=== PATIENT | female | born 1940 | race Caucasian/White ===

== ENCOUNTER 2025-03-15 12:45 | Inpatient (IN) | payer MEDICARE ==
[~2025-03-15] VITALS: Ht 157.5 cm; Wt 45.4 kg
[2025-03-15 12:49] VITALS: O2SAT 99
[2025-03-15 15:20] LABS: CREATININE 1.1 mg/dL (0.6-1.0); UREA NITROGEN BLOOD 19 mg/dL (9-23)
[2025-03-15 15:21] LABS: TROPONIN I HIGH SENSITIVITY 13 ng/L (3.0-34)
[2025-03-15 15:22] LABS: ASPARTATE AMINOTRANSFERASE 20 IU/L (<34); BILIRUBIN DIRECT 0.3 mg/dL (<=3.0); BILIRUBIN TOTAL 0.9 mg/dL (0.1-1.0); PROTEIN TOTAL 6.6 g/dL (6.0-8.3)
[2025-03-15 15:25] LABS: BASOPHILS % 0.2 % (0.0-2.0); EOSINOPHILS % 0.3 % (0.0-5.0); HEMATOCRIT. 30.9 % (36.0-48.0); HEMOGLOBIN. 10.6 g/dL (12.0-16.0); LYMPHOCYTES % 7.4 % (20.0-50.0); MEAN PLATELET VOLUME 8.1 fl (7.4-10.4); MONOCYTES % 4.6 % (2.0-8.0); NEUTROPHILS % 87.5 % (40.0-76.0); PLATELET 175 x1000/uL (130-400); RED BLOOD CELL COUNT 2.70 mill/uL (4.2-5.4); RED CELL DISTRIBUTION WIDTH 14.0 % (11.6-14.6)
[2025-03-15 15:31] LABS: ADD RBC MORPHOLOGY YES
[2025-03-15 15:36] LABS: INR 1.0
[2025-03-15] MEDS ORDERED: IPRATROPIUM/ALBUTEROL 0.5-3(2.5)MG/3ML NEB NEB PRN (15:45)
[2025-03-15] MEDS ORDERED: MAGNESIUM/ALUMINUM HYDROXIDE/SIMETHICONE 30ML UDC PO PRN (15:45)
[2025-03-15] MEDS ORDERED: ACETAMINOPHEN 650MG SUPP PR PRN (15:45)
[2025-03-15] MEDS ORDERED: NA PHOS,M-B/NA PHOS,DI-BA ENEMA 118ML PR PRN (15:45)
[2025-03-15] MEDS ORDERED: ONDANSETRON HCL 4MG/2ML INJ IV PRN (15:45)
[2025-03-15] MEDS ORDERED: DIPHENHYDRAMINE 50MG/ML VIAL IV PRN (15:45)
[2025-03-15] MEDS ORDERED: ACETAMINOPHEN 325MG TABLET PO PRN (15:45)
[2025-03-15] MEDS ORDERED: GUAIFENESIN 200MG/10ML SUGAR FREE UDC PO PRN (15:45)
[2025-03-15] MEDS ORDERED: NALOXONE HCL 0.4MG/ML VIAL IV PRN (16:30)
[2025-03-15] MEDS: CLONIDINE 0.1MG TABLET PO PRN (17:47)
[2025-03-15 17:55] VITALS: BP 188/74; PULSE 73; RESP 24; TEMP 36.974
[2025-03-15 18:41] LABS: CLARITY URINE CLEAR (CLEAR); COLOR URINE YELLOW (YELLOW); GLUCOSE URINE NEGATIVE (NEGATIVE); KETONES URINE NEGATIVE (NEGATIVE); LEUKOCYTE ESTERASE URINE 3+ (NEGATIVE); NITRITE URINE NEGATIVE (NEGATIVE); OCCULT BLOOD URINE 1+ (NEGATIVE); PH URINE 7.0 (4.5-8.0); PROTEIN URINE TRACE (NEGATIVE); SPECIFIC GRAVITY URINE 1.012 (1.005-1.030); UROBILINOGEN URINE 1.0 E.U./dL (0.2-1.0)
[2025-03-15 18:47] VITALS: BP 159/76; PULSE 75
[2025-03-15 19:02] LABS: BACTERIA URINE TRACE
[2025-03-15 19:03] LABS: SQUAMOUS EPITHELIAL CELL URINE FEW /lpf (RARE/1+)
[2025-03-15 20:00] VITALS: BP 163/65; PULSE 70; RESP 16; TEMP 36.7
[2025-03-15 21:03] LABS: PLATELET ESTIMATE NORMAL
[2025-03-16] VITALS: BP 158/62; PULSE 64; RESP 18; TEMP 36.4; O2SAT 100
[2025-03-16] MEDS: AMLODIPINE 5MG TABLET PO SCH (00:07)
[2025-03-16 02:46] LABS: CREATINE KINASE MB FRACTION < 0.5 ng/mL (0.5-3.6); TROPONIN I HIGH SENSITIVITY 12 ng/L (3.0-34)
[2025-03-16 04:00] VITALS: BP 173/59; PULSE 62; RESP 16; TEMP 36.6; O2SAT 100
[2025-03-16 07:41] LABS: TROPONIN I HIGH SENSITIVITY 8 ng/L (3.0-34)
[2025-03-16 07:42] LABS: CREATINE KINASE MB FRACTION < 0.5 ng/mL (0.5-3.6)
[2025-03-16 08:00] VITALS: BP 170/52; PULSE 62; RESP 24; TEMP 36.1; O2SAT 100
[2025-03-16 12:00] VITALS: PULSE 68; RESP 24; TEMP 36.8; O2SAT 100
[2025-03-16] MEDS: POLYETHYLENE GLYCOL 3350 (17GM) 1 DOSE PACK PO SCH (12:15)
[2025-03-16 16:00] VITALS: PULSE 81; RESP 21; TEMP 36.4; O2SAT 98
[2025-03-16] MEDS: LORAZEPAM 0.5MG TABLET PO PRN (17:44)
[2025-03-16 20:00] VITALS: BP 141/67; PULSE 81; RESP 18; TEMP 36.6; O2SAT 100
[2025-03-17] VITALS: BP 145/56; PULSE 71; RESP 20; TEMP 36.6; O2SAT 99
[2025-03-17 04:00] VITALS: BP 138/54; PULSE 76; RESP 18; TEMP 36.6; O2SAT 99
[2025-03-17 08:00] VITALS: BP 135/55; PULSE 69; RESP 21; TEMP 36.8; O2SAT 99
[2025-03-17 12:00] VITALS: BP 147/53; PULSE 73; RESP 20; TEMP 37.1; O2SAT 99
[2025-03-17 16:00] VITALS: BP 131/58; PULSE 71; RESP 20; TEMP 36.9; O2SAT 98
[2025-03-17 20:00] VITALS: BP 129/58; PULSE 76; RESP 19; TEMP 36.6; O2SAT 100
[2025-03-18] VITALS (8 sets, daily range): BP systolic 117–202; BP diastolic 51–76; PULSE 65–85; RESP 16–19; TEMP 36.2–36.9; O2SAT 98–100
[2025-03-18 06:32] LABS: BASOPHILS % 0.1 % (0.0-2.0); EOSINOPHILS % 2.4 % (0.0-5.0); HEMATOCRIT. 29.9 % (36.0-48.0); HEMOGLOBIN. 10.3 g/dL (12.0-16.0); LYMPHOCYTES % 25.1 % (20.0-50.0); MEAN PLATELET VOLUME 8.7 fl (7.4-10.4); MONOCYTES % 6.1 % (2.0-8.0); NEUTROPHILS % 66.3 % (40.0-76.0); PLATELET 167 x1000/uL (130-400); RED BLOOD CELL COUNT 2.61 mill/uL (4.2-5.4); RED CELL DISTRIBUTION WIDTH 13.6 % (11.6-14.6)
[2025-03-18 07:01] LABS: CREATININE 0.9 mg/dL (0.6-1.0); UREA NITROGEN BLOOD 18.0 mg/dL (9-23)
[2025-03-18] MEDS ORDERED: AMLO5TAB88 PO (09:05)
[2025-03-18] MEDS: HYDROCODONE/ACETAMINOPHEN 5/325MG TABLET PO PRN (11:39)
[2025-03-18] MEDS ORDERED: HYDRALAZINE 10 MG in SODIUM CHLORIDE 0.9% 49.5 ML IV PRN (18:00)
[2025-03-18] MEDS: HYDRALAZINE HCL 25MG TABLET PO SCH (21:40)
[2025-03-19] VITALS: BP 133/58; PULSE 78; RESP 15; TEMP 36.7; O2SAT 100
[2025-03-19 03:56] VITALS: BP 136/60; PULSE 74; RESP 16; TEMP 36.8; O2SAT 100
[2025-03-19 08:00] VITALS: BP 120/89; PULSE 68; RESP 17; TEMP 36.8; O2SAT 97
[2025-03-19 12:00] VITALS: BP 160/54; PULSE 75; RESP 17; TEMP 36.4; O2SAT 98
[2025-03-19 16:00] VITALS: BP 127/47; PULSE 68; RESP 16; TEMP 36.9; O2SAT 99
[2025-03-19 20:00] VITALS: BP 145/51; PULSE 66; RESP 18; TEMP 36.7; O2SAT 99
[2025-03-19 22:36] LABS: TROPONIN I HIGH SENSITIVITY 7 ng/L (3.0-34)
[2025-03-20] VITALS: BP 128/49; PULSE 55; RESP 16; TEMP 36.7; O2SAT 99
[2025-03-20] MEDS: DOCUSATE SODIUM 100MG CAPSULE PO PRN (03:41)
[2025-03-20 04:00] VITALS: BP 132/60; PULSE 60; RESP 17; TEMP 36.7; O2SAT 98
[2025-03-20 08:00] VITALS: BP 162/60; PULSE 62; RESP 18; TEMP 36.4; O2SAT 100
[2025-03-20 08:39] LABS: BASOPHILS % 0.3 % (0.0-2.0); EOSINOPHILS % 1.9 % (0.0-5.0); HEMATOCRIT. 30.7 % (36.0-48.0); HEMOGLOBIN. 10.4 g/dL (12.0-16.0); LYMPHOCYTES % 17.4 % (20.0-50.0); MEAN PLATELET VOLUME 8.7 fl (7.4-10.4); MONOCYTES % 6.5 % (2.0-8.0); NEUTROPHILS % 73.9 % (40.0-76.0); PLATELET 172 x1000/uL (130-400); RED BLOOD CELL COUNT 2.66 mill/uL (4.2-5.4); RED CELL DISTRIBUTION WIDTH 14.1 % (11.6-14.6)
[2025-03-20 08:50] LABS: CREATININE 0.8 mg/dL (0.6-1.0); UREA NITROGEN BLOOD 16 mg/dL (9-23)
[2025-03-20 12:00] VITALS: BP 119/46; PULSE 61; RESP 16; TEMP 36.3; O2SAT 100
[2025-03-20 16:00] VITALS: BP 139/56; PULSE 80; RESP 18; TEMP 36.5; O2SAT 98
[2025-03-20 20:00] VITALS: BP 165/54; PULSE 67; RESP 17; TEMP 36.6; O2SAT 98
[2025-03-21] VITALS: BP 179/67; PULSE 76; RESP 18; TEMP 36.6; O2SAT 98
[2025-03-21 04:00] VITALS: BP 129/47; PULSE 63; RESP 16; TEMP 36.4; O2SAT 100
[2025-03-21 08:00] VITALS: BP 157/56; PULSE 64; RESP 24; TEMP 36.9; O2SAT 99
[2025-03-21] MEDS: AMLODIPINE 10MG TABLET PO SCH (09:01)
[2025-03-21 12:00] VITALS: BP 127/53; PULSE 75; RESP 22; TEMP 36.7; O2SAT 98
[2025-03-21 16:00] VITALS: BP 142/54; PULSE 73; RESP 22; TEMP 37; O2SAT 98
[2025-03-21 20:00] VITALS: BP 153/52; PULSE 72; RESP 18; TEMP 36.3; O2SAT 99
[2025-03-22 04:00] VITALS: BP 175/66; PULSE 78; RESP 17; TEMP 36.4; O2SAT 99
[2025-03-22] MEDS: LORAZEPAM 0.5MG TABLET PO PRN (07:58)
[2025-03-22 08:00] VITALS: BP 164/54; PULSE 80; RESP 20; TEMP 36.6; O2SAT 100
[2025-03-22 12:00] VITALS: BP 139/50; PULSE 70; RESP 20; TEMP 36.7; O2SAT 99
[2025-03-22 16:00] VITALS: BP 140/50; PULSE 73; RESP 20; TEMP 36.8; O2SAT 98
[2025-03-22 20:00] VITALS: BP 127/45; PULSE 68; RESP 18; TEMP 36.3; O2SAT 98
[2025-03-23] VITALS: BP 152/54; PULSE 73; RESP 18; TEMP 36.3; O2SAT 100
[2025-03-23 04:00] VITALS: BP 147/56; PULSE 67; RESP 17; TEMP 36.4; O2SAT 100
[2025-03-23 08:00] VITALS: BP 132/53; PULSE 64; RESP 17; TEMP 36.7; O2SAT 98
[2025-03-23 12:00] VITALS: BP 122/42; PULSE 70; RESP 17; TEMP 36.4; O2SAT 98
[2025-03-23 16:00] VITALS: BP 135/53; PULSE 80; RESP 17; TEMP 36.5; O2SAT 97
[2025-03-23 20:00] VITALS: BP 138/52; PULSE 80; RESP 17; RESP 18; TEMP 36.5; O2SAT 96; O2SAT 97
[2025-03-24] VITALS: BP 157/52; PULSE 74; RESP 17; RESP 18; TEMP 36.4; O2SAT 99
[2025-03-24 04:00] VITALS: BP 136/46; PULSE 68; RESP 18; TEMP 36.1; O2SAT 99
[2025-03-24 08:00] VITALS: BP 161/58; PULSE 71; RESP 21; TEMP 36.9; O2SAT 100
[2025-03-24 12:00] VITALS: BP 132/54; PULSE 75; RESP 17; TEMP 36.4; O2SAT 98
[2025-03-24 16:00] VITALS: BP 132/52; PULSE 79; RESP 20; TEMP 36.8; O2SAT 98
[2025-03-24 20:00] VITALS: BP 127/52; PULSE 77; RESP 20; TEMP 36.6; O2SAT 100
[2025-03-25] VITALS: BP 147/52; PULSE 77; RESP 20; TEMP 36.4; O2SAT 98
[2025-03-25 04:00] VITALS: BP 184/73; PULSE 82; RESP 20; TEMP 36.4; O2SAT 99
[2025-03-25 08:00] VITALS: BP 135/46; PULSE 68; RESP 21; TEMP 36.7; O2SAT 100
[2025-03-25 12:00] VITALS: BP 144/58; PULSE 79; RESP 20; TEMP 36.7; O2SAT 99
[2025-03-25 16:00] VITALS: BP 136/52; PULSE 72; RESP 20; TEMP 36.8; O2SAT 99
[2025-03-25 20:00] VITALS: BP 144/54; PULSE 80; RESP 16; TEMP 36.6; O2SAT 97
[2025-03-26] VITALS: BP_SYST 163; PULSE 84; RESP 18; TEMP 36.7; O2SAT 99
[2025-03-26 00:10] VITALS: BP 154/63; PULSE 81; RESP 18; TEMP 36.7; O2SAT 99
[2025-03-26 04:00] VITALS: BP 149/58; PULSE 80; RESP 17; TEMP 36.6; O2SAT 99
[2025-03-26 16:00] VITALS: BP 158/57; PULSE 79; RESP 17; TEMP 36.5; O2SAT 98
[2025-03-26 20:00] VITALS: BP 163/60; PULSE 78; RESP 16; TEMP 36.7; O2SAT 98
[2025-03-27] VITALS (7 sets, daily range): BP systolic 109–165; BP diastolic 48–62; PULSE 60–86; RESP 15–20; TEMP 36.6–36.8; O2SAT 97–100
[2025-03-27] MEDS: MIRTAZAPINE 15MG TABLET PO SCH (21:44)
[2025-03-28 04:00] VITALS: BP 146/78; PULSE 73; RESP 20; TEMP 36.7; O2SAT 100
[2025-03-28 08:00] VITALS: BP 152/83; PULSE 82; RESP 16; TEMP 36.8; O2SAT 98
[2025-03-28 12:00] VITALS: BP 146/81; PULSE 69; RESP 17; TEMP 37; O2SAT 97
[2025-03-28 16:00] VITALS: BP 141/76; PULSE 72; RESP 18; TEMP 36.7; O2SAT 98
[2025-03-28 20:00] VITALS: BP 137/53; PULSE 77; RESP 18; TEMP 36.1; O2SAT 99
[2025-03-28] MEDS: TRAZODONE HCL 50MG TABLET PO SCH (21:27)
[2025-03-29] VITALS: BP 154/63; PULSE 80; RESP 18; TEMP 36.1; O2SAT 100
[2025-03-29 04:00] VITALS: BP 164/67; PULSE 93; RESP 18; TEMP 36.1; TEMP 37.2; O2SAT 100
[2025-03-29 08:00] VITALS: BP 113/46; PULSE 78; RESP 18; TEMP 36.6; O2SAT 99
[2025-03-29 12:00] VITALS: BP 129/53; PULSE 87; RESP 18; TEMP 36.4; O2SAT 99
[2025-03-29 16:00] VITALS: BP 118/41; PULSE 80; RESP 17; TEMP 36.7; O2SAT 98
[2025-03-29 20:00] VITALS: BP 131/52; PULSE 83; RESP 18; TEMP 36.6; O2SAT 99
[2025-03-30] VITALS: BP 121/47; PULSE 72; RESP 18; TEMP 36.4; O2SAT 98
[2025-03-30 04:00] VITALS: BP 140/56; PULSE 81; RESP 18; TEMP 35.8; O2SAT 99
[2025-03-30 08:00] VITALS: BP 152/53; PULSE 82; RESP 20; TEMP 36.8; O2SAT 100
[2025-03-30 12:00] VITALS: BP 145/55; PULSE 80; RESP 20; TEMP 36.8; O2SAT 99
[2025-03-30 20:00] VITALS: BP 129/52; PULSE 82; RESP 18; TEMP 36.6; O2SAT 96
[2025-03-31] VITALS: BP 133/56; PULSE 83; RESP 18; TEMP 36.6; O2SAT 98
[2025-03-31 04:00] VITALS: BP 173/64; PULSE 78; RESP 18; TEMP 36.4; O2SAT 98
[2025-03-31 08:00] VITALS: BP 149/62; PULSE 75; RESP 18; TEMP 36.9; O2SAT 100
[2025-03-31 12:00] VITALS: BP 131/49; PULSE 74; RESP 16; TEMP 36.4; O2SAT 99
[2025-03-31 16:00] VITALS: BP 120/46; PULSE 71; RESP 16; TEMP 36.7; O2SAT 100
[2025-03-31 20:00] VITALS: BP 154/53; PULSE 72; RESP 18; TEMP 36.7; O2SAT 99
[2025-03-31] MEDS: TRAZODONE HCL 50MG TABLET PO SCH (20:46)
[2025-04-01] VITALS (7 sets, daily range): BP systolic 119–149; BP diastolic 50–68; PULSE 71–86; RESP 16–17; TEMP 35.9–36.9; O2SAT 98–100
== END 2025-04-01 21:40 | DRG 305 ==
LOC: ER 12:55 → EDBD 12:55 → EDBEDREQ 15:35 → 8EST 17:10
PROVIDERS: ADMIT Internal Medicine; ATTEND Internal Medicine
PROC: GZ56ZZZ Individual Psychotherapy, Supportive (ICD-10-PCS; principal; 2025-03-27)
DX: I16.0 Hypertensive urgency (principal); D64.9 Anemia, unspecified; F03.93 Unspecified dementia, unspecified severity, with mood disturbance; F32.9 Major depressive disorder, single episode, unspecified; Z86.73 Personal history of transient ischemic attack (TIA), and cerebral infarction without residual deficits
CPT/HCPCS: 36415; 71045; 72170; 80048; 80076; 81003; 82550; 82553; 83735; 83880; 84443; 84484; 85025; 93005; 93970; 97162; 99285; A4606; J0360; J1200